=== PATIENT | male | born 1955 | race Caucasian/White ===

== ENCOUNTER → 2016-09-28 | Outpatient (CLI) | payer OTHER ==
[~2016-09-28] VITALS: Ht 175.3 cm; Wt 83.9 kg
[~2016-09-28] MED LIST: AMLODIPINE BESY10 MG PO; ASPIRIN81 M2 PO; B-COMPLEX-VITA1 EACH PO; DESYREL100 MG PO; HYDROCHLOROTH12.5 M3 PO; LISINOPRIL10 MG PO; LOTREL 5/101 CAPSULE PO; OXYCODONE HCL5 MG PO; RANITIDINE HCL150 MG PO; TRAZODONE HCL50 MG PO; VITAMIN D5000 UNI1 PO; VITAMIN E400 UNIT PO
== END | disposition home or self-care (01) ==
LOC: AMB 12:00
DX: K31.5 Obstruction of duodenum (principal); Z53.09 Procedure and treatment not carried out because of other contraindication; K29.80 Duodenitis without bleeding; Z90.49 Acquired absence of other specified parts of digestive tract; I10 Essential (primary) hypertension; B18.2 Chronic viral hepatitis C; F17.200 Nicotine dependence, unspecified, uncomplicated; Z82.49 Family history of ischemic heart disease and other diseases of the circulatory system
CPT/HCPCS: 74328; 88305; 93005; J0330; J1100; J2250; J2405; J3010

== ENCOUNTER 2016-12-05 19:50 | Inpatient (IN) | payer OTHER ==
[~2016-12-05] VITALS: Ht 175.3 cm; Wt 76.6 kg
[2016-12-05 21:05] LABS: HEMATOCRIT 53.2 % (38.0-50.0); MCH 32.2 PG (29.0-34.0); MCHC 35.7 G/DL (30.0-36.0); MCV 90.2 FL (86-99); MEAN PLAT.VOLUME 11.7 uM^3 (9.0-12.4); PLATELET COUNT 354 K/uL (156-360); RBC DIS.WIDTH-CV 12.4 % (11.8-14.6); RBC DIS.WIDTH-SD 41.1 % (39-53); WHITE BLOOD COUNT 14.2 K/uL (4.1-10.2)
[2016-12-05 21:15] LABS: CHLORIDE 68 mEq/L (99-109); SODIUM 133 mEq/L (136-147)
[2016-12-05 21:17] LABS: GLUCOSE 169 mg/dL (70-99)
[2016-12-05 21:18] LABS: ANION GAP 29 MEQ/L (2-14)
[2016-12-05 21:19] LABS: TOTAL BILIRUBIN 2.3 mg/dL (0.0-1.0)
[2016-12-05 21:21] LABS: ALKALINE PHOSPHATASE 88 IU/L (3-129); GFR ESTIMATE (CALCULATED) 18 mL/min/
[2016-12-05 21:22] LABS: UREA NITROGEN (BUN) 45 mg/dL (9-23)
[2016-12-05] MEDS ORDERED: KEFLEX500 MG PO (21:36)
[2016-12-05] MEDS ORDERED: MOBIC7.5 MG PO (21:36)
[2016-12-05 21:39] LABS: POTASSIUM 2.4 mEq/L (3.7-5.4)
[2016-12-05 21:56] LABS: LIPASE 538 U/L (1.0-51.0)
[2016-12-05 22:30] LABS: TROP-I INTERPRETATION NEGATIVE; TROPONIN-I 0.06 ng/mL (0.0-0.30)
[2016-12-06 04:14] LABS: HEMATOCRIT 44.6 % (38.0-50.0); MCH 32.2 PG (29.0-34.0); MCHC 35.2 G/DL (30.0-36.0); MCV 91.6 FL (86-99); RBC DIS.WIDTH-CV 12.3 % (11.8-14.6); RBC DIS.WIDTH-SD 41.3 % (39-53); RED BLOOD COUNT 4.87 M/uL (4.00-5.50); WHITE BLOOD COUNT 12.8 K/uL (4.1-10.2)
[2016-12-06 04:23] LABS: CHLORIDE 74 mEq/L (99-109); SODIUM 134 mEq/L (136-147)
[2016-12-06 04:24] LABS: MAGNESIUM 2.1 mg/dL (1.3-2.7)
[2016-12-06 04:25] LABS: CHLORIDE 74 mEq/L (99-109); GLUCOSE 135 mg/dL (70-99); SODIUM 134 mEq/L (136-147)
[2016-12-06 04:27] LABS: ANION GAP 18 MEQ/L (2-14); GLUCOSE 136 mg/dL (70-99)
[2016-12-06 04:28] LABS: ANION GAP 17 MEQ/L (2-14)
[2016-12-06 04:29] LABS: GFR ESTIMATE (CALCULATED) 20 mL/min/
[2016-12-06 04:30] LABS: CARBON DIOXIDE (BICARBONATE) > 40.0 mEq/L (20-31); POTASSIUM 2.4 mEq/L (3.7-5.4); UREA NITROGEN (BUN) 47 mg/dL (9-23)
[2016-12-06 04:31] LABS: CARBON DIOXIDE (BICARBONATE) > 40.0 mEq/L (20-31); GFR ESTIMATE (CALCULATED) 20 mL/min/; POTASSIUM 2.4 mEq/L (3.7-5.4)
[2016-12-06 04:32] LABS: CREATINE KINASE 54 IU/L (1-294); UREA NITROGEN (BUN) 47 mg/dL (9-23); URIC ACID 15.5 mg/dL (3.1-9.2)
[2016-12-06 05:32] LABS: MEAN PLAT.VOLUME 11.2 uM^3 (9.0-12.4); PLAT.SUFFICIENCY ADEQUATE
[2016-12-06 05:33] LABS: PLATELET COUNT 234 K/uL (156-360)
[2016-12-06] MEDS ORDERED: CYANOCOBALAM1000 MCG PO (09:20)
[2016-12-06] MEDS ORDERED: LISINOPRIL10 MG PO (09:22)
[2016-12-06 09:58] LABS: EOSINOPHIL COUNT 0.2 K/uL (0-0.3); HEMATOCRIT 46.4 % (38.0-50.0); IMMATURE GRANULOCYTE (%) 0.6 % (0.0-0.7); IMMATURE GRANULOCYTE COUNT 0.1 K/uL; INSTRUMENT ABS NEUTROPHIL CT 11.1 K/uL; LYMPHOCYTE COUNT 2.7 K/uL (1.0-2.8); MCH 31.8 PG (29.0-34.0); MCHC 34.3 G/DL (30.0-36.0); MCV 92.8 FL (86-99); MEAN PLAT.VOLUME 11.5 uM^3 (9.0-12.4); MONOCYTE (%) 10.2 % (3-12); MONOCYTE COUNT 1.6 K/uL (0-0.8); NEUTROPHIL (%) 70.6 % (45-76); NEUTROPHIL COUNT 11.1 K/uL (1.8-6.4); PLATELET COUNT 252 K/uL (156-360); RBC DIS.WIDTH-CV 12.6 % (11.8-14.6); RBC DIS.WIDTH-SD 43.2 % (39-53); WHITE BLOOD COUNT 15.7 K/uL (4.1-10.2)
[2016-12-06 10:24] VITALS: BP 135/75
[2016-12-06 10:44] LABS: ALKALINE PHOSPHATASE 70 IU/L (3-129); ANION GAP 15 MEQ/L (2-14); CHLORIDE 77 MEQ/L (99-109); GFR ESTIMATE (CALCULATED) 21 mL/min/; GLUCOSE 116 mg/dL (70-99); POTASSIUM 3.1 MEQ/L (3.7-5.4); SAMPLE HEMOLYSIS CHECK 0; SAMPLE ICTERIC CHECK 0; SAMPLE LIPEMIA CHECK 0; SODIUM 132 MEQ/L (136-147); TOTAL BILIRUBIN 1.6 MG/DL (0.0-1.0); UREA NITROGEN (BUN) 50 mg/dL (9-23)
[2016-12-06 13:21] LABS: VENOUS PCO2 78 mm Hg (41-51)
[2016-12-06 13:22] LABS: CARBON DIOXIDE (BICARBONATE) > 40.0 MEQ/L (20-31)
[2016-12-06 13:30] LABS: ADD MIUA? YES; BILIRUBIN NEGATIVE; BLOOD NEGATIVE; COLOR AMBER ((YELLOW)); GLUCOSE (STRIP) NEGATIVE; KETONES 5; LEUKOCYTES NEGATIVE; NITRITE NEGATIVE; PROTEIN (STRIP) 100; SPECIFIC GRAVITY 1.019 (1.000-1.030)
[2016-12-06 13:45] LABS: BACTERIA RARE /HPF; EPITHELIAL CELLS RARE /HPF; HYALINE CASTS TNTC /LPF; MUCUS 2+ /LPF
[2016-12-06 19:30] VITALS: BP 101/60
[2016-12-06 23:00] VITALS: BP 112/77
[2016-12-07 03:00] VITALS: BP 120/60
[2016-12-07 05:28] LABS: HEMATOCRIT 41.7 % (38.0-50.0); MCH 33.1 PG (29.0-34.0); MCHC 34.8 G/DL (30.0-36.0); MCV 95.2 FL (86-99); PLATELET COUNT 210 K/uL (156-360); RBC DIS.WIDTH-CV 12.6 % (11.8-14.6); RBC DIS.WIDTH-SD 43.8 % (39-53); RED BLOOD COUNT 4.38 M/uL (4.00-5.50); WHITE BLOOD COUNT 11.1 K/uL (4.1-10.2)
[2016-12-07 06:03] LABS: ALKALINE PHOSPHATASE 59 IU/L (3-129); ANION GAP 9 MEQ/L (2-14); LIPASE 588 U/L (1.0-51.0); MAGNESIUM 2.2 mg/dl (1.3-2.7); SAMPLE HEMOLYSIS CHECK 0; SAMPLE ICTERIC CHECK 0; SAMPLE LIPEMIA CHECK 0; SODIUM 136 MEQ/L (136-147); TOTAL BILIRUBIN 1.3 MG/DL (0.0-1.0); UREA NITROGEN (BUN) 38 mg/dL (9-23); URIC ACID 11.3 mg/dL (3.1-9.2)
[2016-12-07 06:07] LABS: CHLORIDE 90 MEQ/L (99-109); GFR ESTIMATE (CALCULATED) 36 mL/min/; GLUCOSE 83 mg/dL (70-99)
[2016-12-07 08:09] VITALS: BP 123/67
[2016-12-07 19:30] VITALS: BP 135/93
[2016-12-07 23:45] VITALS: BP 142/80
== END 2016-12-08 00:25 | disposition short-term general hospital (02) | DRG 682 ==
LOC: EME 19:50 → 4EAST 12-06 03:08 → EDOF 12-06 03:08 → 4EAST 12-06 09:33
PROVIDERS: Hospitalist; Internal Medicine; Internal Medicine Nephrology
DX: N17.9 Acute kidney failure, unspecified (principal); E87.4 Mixed disorder of acid-base balance; K31.1 Adult hypertrophic pyloric stenosis; K31.5 Obstruction of duodenum; K85.90 Acute pancreatitis without necrosis or infection, unspecified; R18.8 Other ascites; E88.89 Other specified metabolic disorders; C78.7 Secondary malignant neoplasm of liver and intrahepatic bile duct; B19.20 Unspecified viral hepatitis C without hepatic coma; E83.119 Hemochromatosis, unspecified; E83.39 Other disorders of phosphorus metabolism; E83.52 Hypercalcemia; E79.0 Hyperuricemia without signs of inflammatory arthritis and tophaceous disease; E86.0 Dehydration; E87.6 Hypokalemia; F12.90 Cannabis use, unspecified, uncomplicated; F17.210 Nicotine dependence, cigarettes, uncomplicated; I10 Essential (primary) hypertension; K29.70 Gastritis, unspecified, without bleeding; K59.00 Constipation, unspecified; K74.60 Unspecified cirrhosis of liver; K80.20 Calculus of gallbladder without cholecystitis without obstruction; N28.1 Cyst of kidney, acquired; N40.0 Benign prostatic hyperplasia without lower urinary tract symptoms; R00.0 Tachycardia, unspecified; Z79.899 Other long term (current) drug therapy; Z82.49 Family history of ischemic heart disease and other diseases of the circulatory system; R63.4 Abnormal weight loss; T73.0XXA Starvation, initial encounter; T46.4X5A Adverse effect of angiotensin-converting-enzyme inhibitors, initial encounter; T39.395A Adverse effect of other nonsteroidal anti-inflammatory drugs [NSAID], initial encounter; D49.9 Neoplasm of unspecified behavior of unspecified site
CPT/HCPCS: 74176; 76770; 80048; 80048 91; 80053; 80069; 81003; 82088 90; 82436; 82550; 82803; 83690; 83735; 83930; 83935; 84100; 84133; 84244 90; 84300; 84484; 84550; 85025; 85027; 93005; 99281; 99285; C9113; J1200; J1644; J2270; J2405; J3480; J7030; J7040; S0028

== ENCOUNTER 2017-06-03 06:22 | Inpatient (IN) | payer OTHER ==
[~2017-06-03] VITALS: Ht 175.3 cm; Wt 73.4 kg
[2017-06-03] VITALS (8 sets, daily range): BP systolic 108–133; BP diastolic 58–79
[~2017-06-03 06:22] MED LIST changes: +CYANOCOBALAM1000 MCG PO; +KEFLEX500 MG PO; +MOBIC7.5 MG PO
[2017-06-03 07:16] LABS: BASOPHIL (%) 0.6 % (0-1); BASOPHIL COUNT 0.1 K/uL (0-0.1); EOSINOPHIL (%) 0.9 % (0-5); EOSINOPHIL COUNT 0.2 K/uL (0-0.3); HEMATOCRIT 30.3 % (38.0-50.0); HEMOGLOBIN 10.3 G/DL (12.5-16.6); LYMPHOCYTE (%) 5.5 % (15-42); LYMPHOCYTE COUNT 1.2 K/uL (1.0-2.8); MCH 31.9 PG (29.0-34.0); MCV 93.8 FL (86-99); MONOCYTE (%) 7.5 % (3-12); MONOCYTE COUNT 1.6 K/uL (0-0.8); NEUTROPHIL (%) 84.5 % (45-76); NEUTROPHIL COUNT 17.7 K/uL (1.8-6.4); PLATELET COUNT 339 K/uL (156-360); RBC DIS.WIDTH-CV 15.2 % (11.8-14.6); RBC DIS.WIDTH-SD 52.5 % (39-53); RED BLOOD COUNT 3.23 M/uL (4.00-5.50)
[2017-06-03 07:24] LABS: CHLORIDE 103 mEq/L (99-109); POTASSIUM 3.3 mEq/L (3.7-5.4); SODIUM 139 mEq/L (136-147)
[2017-06-03 07:27] LABS: GLUCOSE 120 mg/dL (70-99); TOTAL PROTEIN 6.3 g/dL (6.4-8.3)
[2017-06-03 07:29] LABS: TOTAL BILIRUBIN 0.8 mg/dL (0.0-1.0)
[2017-06-03 07:30] LABS: ALKALINE PHOSPHATASE 143 IU/L (3-129); CREATININE 0.7 mg/dL (0.6-1.3); GFR ESTIMATE (CALCULATED) > 59 mL/min/ (58.99-99999)
[2017-06-03 07:31] LABS: UREA NITROGEN (BUN) 19 mg/dL (9-23)
[2017-06-03 07:32] LABS: AST (GOT) 40 IU/L (2-34)
[2017-06-03 07:33] LABS: ALT (GPT) 90 IU/L (3-49)
[2017-06-03 07:34] LABS: LIPASE 86 U/L (1.0-51.0)
[2017-06-03 08:33] LABS: INTER. NORMALIZED RATIO 1.2
[2017-06-03 08:36] LABS: PTT 30.3 SEC (25-37)
[2017-06-03 10:41] LABS: APPEARANCE CLOUDY ((CLEAR)); BILIRUBIN NEGATIVE; BLOOD NEGATIVE; COLOR AMBER ((YELLOW)); GLUCOSE (STRIP) NEGATIVE; KETONES 5; LEUKOCYTES MODERATE; NITRITE POSITIVE; PROTEIN (STRIP) 30; SPECIFIC GRAVITY 1.024 (1.000-1.030)
[2017-06-03 10:52] LABS: BACTERIA 3+ /HPF; CALCIUM OXALATE CRYSTALS 2+ /HPF; EPITHELIAL CELLS RARE /HPF; HYALINE CASTS 0-5 /LPF; MUCUS 1+ /LPF; RED BLOOD CELLS 0-5 /HPF (0-5); UCUL ADDED? YES; WHITE BLOOD CELLS TNTC /HPF (0-5)
[2017-06-03] MEDS ORDERED: BENAZEPRIL HCL10 MG PO (11:42)
[2017-06-03] MEDS ORDERED: MORPHINE SULFAT30 M2 PO (11:42)
[2017-06-03] MEDS ORDERED: RANITIDINE HCL150 MG PO (11:43)
[2017-06-03] MEDS ORDERED: MORPHINE SULFAT15 MG PO (11:43)
[2017-06-03] MEDS ORDERED: COMPAZINE5 MG PO (11:44)
[2017-06-03 13:06] LABS: HEMATOCRIT 22.9 % (38.0-50.0); HEMOGLOBIN 7.8 G/DL (12.5-16.6)
[2017-06-03 20:00] LABS: HEMATOCRIT 20.9 % (38.0-50.0); HEMOGLOBIN 6.9 G/DL (12.5-16.6); MCV 94.1 FL (86-99)
[2017-06-04] VITALS (7 sets, daily range): BP systolic 112–138; BP diastolic 65–76
[2017-06-04 06:33] LABS: INTER. NORMALIZED RATIO 1.2
[2017-06-04 06:36] LABS: PTT 30.4 SEC (25-37)
[2017-06-04 06:44] LABS: ALBUMIN 2.2 G/DL (3.2-4.8); ALKALINE PHOSPHATASE 96 IU/L (3-129); ALT (GPT) 52 IU/L (3-49); AST (GOT) 25 IU/L (2-34); CHLORIDE 106 MEQ/L (99-109); CREATININE 0.6 MG/DL (0.6-1.3); GFR ESTIMATE (CALCULATED) > 59 mL/min/ (58.99-99999); POTASSIUM 3.3 MEQ/L (3.7-5.4); SODIUM 136 MEQ/L (136-147); TOTAL BILIRUBIN 0.8 MG/DL (0.0-1.0); TOTAL PROTEIN 4.7 G/DL (6.4-8.3); UREA NITROGEN (BUN) 18 mg/dL (9-23)
[2017-06-04 06:45] LABS: GLUCOSE 86 mg/dL (70-99)
[2017-06-04 08:06] LABS: BASOPHIL (%) 0.3 % (0-1); EOSINOPHIL (%) 0.5 % (0-5); EOSINOPHIL COUNT 0.1 K/uL (0-0.3); HEMATOCRIT 23.7 % (38.0-50.0); HEMOGLOBIN 8.1 G/DL (12.5-16.6); IMMATURE GRANULOCYTE (%) 0.5 % (0.0-0.7); LYMPHOCYTE (%) 7.5 % (15-42); LYMPHOCYTE COUNT 0.9 K/uL (1.0-2.8); MCH 31.6 PG (29.0-34.0); MCHC 34.2 G/DL (30.0-36.0); MCV 92.6 FL (86-99); MONOCYTE (%) 10.6 % (3-12); MONOCYTE COUNT 1.3 K/uL (0-0.8); NEUTROPHIL (%) 80.6 % (45-76); NEUTROPHIL COUNT 9.7 K/uL (1.8-6.4); RBC DIS.WIDTH-CV 16.2 % (11.8-14.6); RBC DIS.WIDTH-SD 55.2 % (39-53); WHITE BLOOD COUNT 12.1 K/uL (4.1-10.2)
[2017-06-04 08:25] LABS: PLAT.SUFFICIENCY ADEQUATE; PLATELET CLUMPS PRESENT - PLATELET COUNT APPEARS ADQ.; PLATELET COUNT UNABLE TO REPORT K/uL (156-360); RED BLOOD COUNT 2.56 M/uL (4.00-5.50)
[2017-06-05 06:24] LABS: BASOPHIL (%) 0.2 % (0-1); EOSINOPHIL (%) 1.5 % (0-5); EOSINOPHIL COUNT 0.1 K/uL (0-0.3); HEMATOCRIT 23.3 % (38.0-50.0); HEMOGLOBIN 7.7 G/DL (12.5-16.6); LYMPHOCYTE (%) 10.1 % (15-42); LYMPHOCYTE COUNT 0.9 K/uL (1.0-2.8); MCH 30.9 PG (29.0-34.0); MCV 93.6 FL (86-99); MONOCYTE (%) 13.4 % (3-12); MONOCYTE COUNT 1.2 K/uL (0-0.8); NEUTROPHIL (%) 73.8 % (45-76); NEUTROPHIL COUNT 6.5 K/uL (1.8-6.4); PLATELET COUNT 153 K/uL (156-360); RBC DIS.WIDTH-CV 15.9 % (11.8-14.6); RBC DIS.WIDTH-SD 54.8 % (39-53); RED BLOOD COUNT 2.49 M/uL (4.00-5.50); WHITE BLOOD COUNT 8.8 K/uL (4.1-10.2)
[2017-06-05 06:51] LABS: CHLORIDE 106 MEQ/L (99-109); CREATININE 0.7 MG/DL (0.6-1.3); GFR ESTIMATE (CALCULATED) > 59 mL/min/ (58.99-99999); GLUCOSE 105 mg/dL (70-99); POTASSIUM 3.4 MEQ/L (3.7-5.4); SODIUM 135 MEQ/L (136-147); UREA NITROGEN (BUN) 12 mg/dL (9-23)
[2017-06-05 08:33] VITALS: BP 112/73
[2017-06-05 11:00] VITALS: BP 117/68
[2017-06-05 14:12] LABS: HEMATOCRIT 24.7 % (38.0-50.0); HEMOGLOBIN 8.3 G/DL (12.5-16.6); MCH 31.8 PG (29.0-34.0); MCHC 33.6 G/DL (30.0-36.0); MCV 94.6 FL (86-99); PLATELET COUNT 191 K/uL (156-360); RBC DIS.WIDTH-CV 15.9 % (11.8-14.6); RBC DIS.WIDTH-SD 55.4 % (39-53); RED BLOOD COUNT 2.61 M/uL (4.00-5.50); WHITE BLOOD COUNT 10.4 K/uL (4.1-10.2)
[2017-06-05 14:35] LABS: ATYPICAL LYMPHOCYTE 0.9 %; BASOPHILS 1.8 %; EOSINOPHIL ABS CT 0.3; EOSINOPHILS 2.6 % (0-5.0); LYMPHOCYTES 4.4 % (15.0-45.0); MONOCYTES 3.5 % (0-9.0); SEG.NEUTROPHILS 86.8 % (46.0-76.0); SMUDGE CELLS 1.8
[2017-06-05 15:00] VITALS: BP 115/71
[2017-06-05 23:18] VITALS: BP 127/81
[2017-06-06 06:19] LABS: BASOPHIL (%) 0.8 % (0-1); BASOPHIL COUNT 0.1 K/uL (0-0.1); EOSINOPHIL (%) 3.9 % (0-5); EOSINOPHIL COUNT 0.3 K/uL (0-0.3); HEMATOCRIT 21.8 % (38.0-50.0); HEMOGLOBIN 7.4 G/DL (12.5-16.6); LYMPHOCYTE (%) 13.6 % (15-42); MCHC 33.9 G/DL (30.0-36.0); MCV 94.4 FL (86-99); MONOCYTE (%) 12.9 % (3-12); MONOCYTE COUNT 0.9 K/uL (0-0.8); NEUTROPHIL (%) 67.8 % (45-76); NEUTROPHIL COUNT 4.9 K/uL (1.8-6.4); PLATELET COUNT 164 K/uL (156-360); RBC DIS.WIDTH-CV 15.9 % (11.8-14.6); RBC DIS.WIDTH-SD 54.6 % (39-53); RED BLOOD COUNT 2.31 M/uL (4.00-5.50); WHITE BLOOD COUNT 7.2 K/uL (4.1-10.2)
[2017-06-06 06:54] LABS: CHLORIDE 108 MEQ/L (99-109); CREATININE 0.6 MG/DL (0.6-1.3); GFR ESTIMATE (CALCULATED) > 59 mL/min/ (58.99-99999); GLUCOSE 96 mg/dL (70-99); POTASSIUM 3.6 MEQ/L (3.7-5.4); SODIUM 136 MEQ/L (136-147); UREA NITROGEN (BUN) 9 mg/dL (9-23)
[2017-06-06 08:26] VITALS: BP 128/74
[2017-06-06 14:40] LABS: BASOPHIL (%) 0.6 % (0-1); BASOPHIL COUNT 0.1 K/uL (0-0.1); EOSINOPHIL (%) 2.4 % (0-5); EOSINOPHIL COUNT 0.2 K/uL (0-0.3); HEMATOCRIT 23.8 % (38.0-50.0); HEMOGLOBIN 7.9 G/DL (12.5-16.6); IMMATURE GRANULOCYTE (%) 0.8 % (0.0-0.7); LYMPHOCYTE COUNT 0.8 K/uL (1.0-2.8); MCH 31.5 PG (29.0-34.0); MCHC 33.2 G/DL (30.0-36.0); MCV 94.8 FL (86-99); MONOCYTE (%) 9.3 % (3-12); MONOCYTE COUNT 0.8 K/uL (0-0.8); NEUTROPHIL (%) 77.9 % (45-76); NEUTROPHIL COUNT 6.8 K/uL (1.8-6.4); PLATELET COUNT 192 K/uL (156-360); RBC DIS.WIDTH-CV 15.8 % (11.8-14.6); RBC DIS.WIDTH-SD 54.3 % (39-53); RED BLOOD COUNT 2.51 M/uL (4.00-5.50); WHITE BLOOD COUNT 8.7 K/uL (4.1-10.2)
[2017-06-06 17:08] VITALS: BP 122/58
[2017-06-06 23:58] VITALS: BP 134/67
[2017-06-07] VITALS (28 sets, daily range): BP systolic 86–147; BP diastolic 53–97
[2017-06-07 03:11] LABS: HEMATOCRIT 22.2 % (38.0-50.0); HEMOGLOBIN 7.5 G/DL (12.5-16.6); MCH 31.6 PG (29.0-34.0); MCHC 33.8 G/DL (30.0-36.0); MCV 93.7 FL (86-99); RBC DIS.WIDTH-CV 15.9 % (11.8-14.6); RBC DIS.WIDTH-SD 54.3 % (39-53); RED BLOOD COUNT 2.37 M/uL (4.00-5.50); WHITE BLOOD COUNT 15.9 K/uL (4.1-10.2)
[2017-06-07 03:13] LABS: PLATELET COUNT 330 K/uL (156-360)
[2017-06-07 03:16] LABS: ALBUMIN 2.3 g/dL (3.2-4.8); CHLORIDE 106 mEq/L (99-109); POTASSIUM 3.4 mEq/L (3.7-5.4); SODIUM 133 mEq/L (136-147)
[2017-06-07 03:18] LABS: GLUCOSE 126 mg/dL (70-99)
[2017-06-07 03:22] LABS: CREATININE 0.7 mg/dL (0.6-1.3); GFR ESTIMATE (CALCULATED) > 59 mL/min/ (58.99-99999)
[2017-06-07 03:23] LABS: AST (GOT) 30 IU/L (2-34); UREA NITROGEN (BUN) 7 mg/dL (9-23)
[2017-06-07 03:24] LABS: DIRECT BILIRUBIN 0.3 mg/dL (0.0-0.3)
[2017-06-07 03:25] LABS: ALT (GPT) 63 IU/L (3-49)
[2017-06-07 03:28] LABS: ALKALINE PHOSPHATASE 106 IU/L (3-129); TOTAL BILIRUBIN 0.4 mg/dL (0.0-1.0); TOTAL PROTEIN 4.9 g/dL (6.4-8.3)
[2017-06-07 05:34] LABS: INTER. NORMALIZED RATIO 1.1
[2017-06-07 07:46] LABS: HEMATOCRIT 21.9 % (38.0-50.0); HEMOGLOBIN 7.1 G/DL (12.5-16.6); MCV 94.4 FL (86-99)
[2017-06-07 08:47] LABS: HEMATOCRIT 19.5 % (38.0-50.0); MCV 92.4 FL (86-99)
[2017-06-07 08:48] LABS: HEMOGLOBIN 6.4 G/DL (12.5-16.6)
[2017-06-07 09:52] LABS: IMM.RETIC FRACTION 22.4 % (3-19); RETIC HGB EQUIVALENT 34.3 (28-36); RETICULOCYTE COUNT 2.6 % (0.5-1.8)
[2017-06-07 09:54] LABS: LACTATE DEHYDROGENASE 366 IU/L (20-246)
[2017-06-07 10:07] LABS: IRON 34 MCG/DL (35-150); TRANSFERRIN (TIBC) 135.8 mg/dL (215-380); TRANSFERRIN SATUR. 25 % (20-55)
[2017-06-07 14:24] LABS: HEMOGLOBIN 7.8 G/DL (12.5-16.6); MCV 89.5 FL (86-99)
[2017-06-07 20:42] LABS: HEMATOCRIT 22.6 % (38.0-50.0); HEMOGLOBIN 7.5 G/DL (12.5-16.6); MCV 89.7 FL (86-99)
[2017-06-08] VITALS (14 sets, daily range): BP systolic 90–142; BP diastolic 65–84
[2017-06-08 04:07] LABS: ALBUMIN 2.1 g/dL (3.2-4.8); CHLORIDE 111 mEq/L (99-109); SODIUM 136 mEq/L (136-147)
[2017-06-08 04:09] LABS: GLUCOSE 112 mg/dL (70-99)
[2017-06-08 04:11] LABS: TOTAL BILIRUBIN 0.4 mg/dL (0.0-1.0)
[2017-06-08 04:13] LABS: ALKALINE PHOSPHATASE 77 IU/L (3-129); CREATININE 0.7 mg/dL (0.6-1.3); GFR ESTIMATE (CALCULATED) > 59 mL/min/ (58.99-99999)
[2017-06-08 04:14] LABS: UREA NITROGEN (BUN) 11 mg/dL (9-23)
[2017-06-08 04:15] LABS: AST (GOT) 25 IU/L (2-34)
[2017-06-08 04:16] LABS: ALT (GPT) 56 IU/L (3-49)
[2017-06-08 04:18] LABS: POTASSIUM 4.6 mEq/L (3.7-5.4)
[2017-06-08 04:36] LABS: BASOPHIL COUNT 0.1 K/uL (0-0.1); EOSINOPHIL (%) 3.3 % (0-5); EOSINOPHIL COUNT 0.3 K/uL (0-0.3); HEMOGLOBIN 7.5 G/DL (12.5-16.6); LYMPHOCYTE (%) 15.3 % (15-42); LYMPHOCYTE COUNT 1.3 K/uL (1.0-2.8); MCH 30.4 PG (29.0-34.0); MCHC 34.1 G/DL (30.0-36.0); MCV 89.1 FL (86-99); MONOCYTE (%) 8.8 % (3-12); MONOCYTE COUNT 0.7 K/uL (0-0.8); NEUTROPHIL (%) 70.6 % (45-76); NEUTROPHIL COUNT 5.9 K/uL (1.8-6.4); RBC DIS.WIDTH-CV 17.2 % (11.8-14.6); RBC DIS.WIDTH-SD 55.7 % (39-53); RED BLOOD COUNT 2.47 M/uL (4.00-5.50); WHITE BLOOD COUNT 8.4 K/uL (4.1-10.2)
[2017-06-08 04:41] LABS: PLAT.SUFFICIENCY ADEQUATE; PLATELET COUNT 196 K/uL (156-360)
[2017-06-08 10:46] LABS: HEMATOCRIT 21.9 % (38.0-50.0); HEMOGLOBIN 7.3 G/DL (12.5-16.6); MCV 91.3 FL (86-99)
[2017-06-08 18:03] LABS: BASOPHIL (%) 1.1 % (0-1); BASOPHIL COUNT 0.1 K/uL (0-0.1); EOSINOPHIL (%) 3.9 % (0-5); EOSINOPHIL COUNT 0.4 K/uL (0-0.3); HEMATOCRIT 24.4 % (38.0-50.0); HEMOGLOBIN 8.2 G/DL (12.5-16.6); IMMATURE GRANULOCYTE (%) 1.4 % (0.0-0.7); LYMPHOCYTE (%) 12.7 % (15-42); LYMPHOCYTE COUNT 1.2 K/uL (1.0-2.8); MCH 30.6 PG (29.0-34.0); MCHC 33.6 G/DL (30.0-36.0); MONOCYTE (%) 8.7 % (3-12); MONOCYTE COUNT 0.8 K/uL (0-0.8); NEUTROPHIL (%) 72.2 % (45-76); NEUTROPHIL COUNT 6.7 K/uL (1.8-6.4); RBC DIS.WIDTH-CV 17.3 % (11.8-14.6); RBC DIS.WIDTH-SD 57.2 % (39-53); RED BLOOD COUNT 2.68 M/uL (4.00-5.50); WHITE BLOOD COUNT 9.3 K/uL (4.1-10.2)
[2017-06-08 18:23] LABS: PLATELET COUNT 258 K/uL (156-360)
[2017-06-09] VITALS (11 sets, daily range): BP systolic 104–160; BP diastolic 59–82
[2017-06-09 06:19] LABS: BASOPHIL (%) 0.8 % (0-1); BASOPHIL COUNT 0.1 K/uL (0-0.1); EOSINOPHIL (%) 2.7 % (0-5); EOSINOPHIL COUNT 0.2 K/uL (0-0.3); HEMOGLOBIN 7.3 G/DL (12.5-16.6); IMMATURE GRANULOCYTE (%) 0.7 % (0.0-0.7); LYMPHOCYTE (%) 14.4 % (15-42); LYMPHOCYTE COUNT 1.2 K/uL (1.0-2.8); MCH 30.2 PG (29.0-34.0); MCHC 33.2 G/DL (30.0-36.0); MCV 90.9 FL (86-99); MONOCYTE (%) 8.9 % (3-12); MONOCYTE COUNT 0.8 K/uL (0-0.8); NEUTROPHIL (%) 72.5 % (45-76); NEUTROPHIL COUNT 6.2 K/uL (1.8-6.4); PLATELET COUNT 206 K/uL (156-360); RBC DIS.WIDTH-CV 17.1 % (11.8-14.6); RBC DIS.WIDTH-SD 56.4 % (39-53); RED BLOOD COUNT 2.42 M/uL (4.00-5.50); WHITE BLOOD COUNT 8.6 K/uL (4.1-10.2)
[2017-06-09 06:47] LABS: CHLORIDE 109 MEQ/L (99-109); CREATININE 0.7 MG/DL (0.6-1.3); GFR ESTIMATE (CALCULATED) > 59 mL/min/ (58.99-99999); GLUCOSE 113 mg/dL (70-99); POTASSIUM 3.7 MEQ/L (3.7-5.4); SODIUM 135 MEQ/L (136-147); UREA NITROGEN (BUN) 14 mg/dL (9-23)
[2017-06-09 21:00] LABS: BASOPHIL (%) 0.5 % (0-1); BASOPHIL COUNT 0.1 K/uL (0-0.1); EOSINOPHIL (%) 2.8 % (0-5); EOSINOPHIL COUNT 0.3 K/uL (0-0.3); HEMATOCRIT 24.4 % (38.0-50.0); HEMOGLOBIN 8.4 G/DL (12.5-16.6); IMMATURE GRANULOCYTE (%) 0.6 % (0.0-0.7); LYMPHOCYTE (%) 10.9 % (15-42); MCH 31.3 PG (29.0-34.0); MCHC 34.4 G/DL (30.0-36.0); MONOCYTE (%) 8.6 % (3-12); MONOCYTE COUNT 0.8 K/uL (0-0.8); NEUTROPHIL (%) 76.6 % (45-76); NEUTROPHIL COUNT 7.2 K/uL (1.8-6.4); PLATELET COUNT 201 K/uL (156-360); RBC DIS.WIDTH-CV 16.1 % (11.8-14.6); RBC DIS.WIDTH-SD 52.6 % (39-53); RED BLOOD COUNT 2.68 M/uL (4.00-5.50); WHITE BLOOD COUNT 9.4 K/uL (4.1-10.2)
[2017-06-10] VITALS (7 sets, daily range): BP systolic 129–157; BP diastolic 72–82
[2017-06-10 06:11] LABS: HEMATOCRIT 25.6 % (38.0-50.0); HEMOGLOBIN 8.5 G/DL (12.5-16.6); MCHC 33.2 G/DL (30.0-36.0); MCV 90.5 FL (86-99); PLATELET COUNT 207 K/uL (156-360); RBC DIS.WIDTH-CV 16.1 % (11.8-14.6); RBC DIS.WIDTH-SD 52.2 % (39-53); RED BLOOD COUNT 2.83 M/uL (4.00-5.50); WHITE BLOOD COUNT 8.9 K/uL (4.1-10.2)
[2017-06-10 07:02] LABS: CHLORIDE 107 MEQ/L (99-109); CREATININE 0.7 MG/DL (0.6-1.3); GFR ESTIMATE (CALCULATED) > 59 mL/min/ (58.99-99999); GLUCOSE 101 mg/dL (70-99); POTASSIUM 3.6 MEQ/L (3.7-5.4); SODIUM 137 MEQ/L (136-147); UREA NITROGEN (BUN) 12 mg/dL (9-23)
[2017-06-11 07:27] VITALS: BP 134/73
[2017-06-11 09:12] LABS: HEMATOCRIT 25.4 % (38.0-50.0); HEMOGLOBIN 8.4 G/DL (12.5-16.6); MCH 30.3 PG (29.0-34.0); MCHC 33.1 G/DL (30.0-36.0); MCV 91.7 FL (86-99); PLATELET COUNT 202 K/uL (156-360); RBC DIS.WIDTH-CV 16.6 % (11.8-14.6); RBC DIS.WIDTH-SD 54.8 % (39-53); RED BLOOD COUNT 2.77 M/uL (4.00-5.50); WHITE BLOOD COUNT 8.1 K/uL (4.1-10.2)
[2017-06-11 09:30] LABS: CHLORIDE 108 MEQ/L (99-109); POTASSIUM 3.6 MEQ/L (3.7-5.4); SODIUM 138 MEQ/L (136-147)
[2017-06-11 09:36] LABS: CREATININE 0.7 MG/DL (0.6-1.3); GFR ESTIMATE (CALCULATED) > 59 mL/min/ (58.99-99999); GLUCOSE 103 mg/dL (70-99); UREA NITROGEN (BUN) 12 mg/dL (9-23)
[2017-06-11 11:09] VITALS: BP 130/88
[2017-06-11 15:40] VITALS: BP 133/84
[2017-06-11 19:11] VITALS: BP 107/64
[2017-06-11 22:45] VITALS: BP 132/73
[2017-06-12 06:55] VITALS: BP 130/63
[2017-06-12 08:02] LABS: HEMATOCRIT 25.6 % (38.0-50.0); HEMOGLOBIN 8.4 G/DL (12.5-16.6); MCH 30.5 PG (29.0-34.0); MCHC 32.8 G/DL (30.0-36.0); MCV 93.1 FL (86-99); PLATELET COUNT 215 K/uL (156-360); RBC DIS.WIDTH-SD 57.1 % (39-53); RED BLOOD COUNT 2.75 M/uL (4.00-5.50); WHITE BLOOD COUNT 8.5 K/uL (4.1-10.2)
[2017-06-12 08:59] LABS: CHLORIDE 107 MEQ/L (99-109); POTASSIUM 3.5 MEQ/L (3.7-5.4); SODIUM 137 MEQ/L (136-147)
[2017-06-12 09:04] LABS: CREATININE 0.7 MG/DL (0.6-1.3); GFR ESTIMATE (CALCULATED) > 59 mL/min/ (58.99-99999); GLUCOSE 87 mg/dL (70-99); UREA NITROGEN (BUN) 12 mg/dL (9-23)
[2017-06-12 11:46] VITALS: BP 142/77
[2017-06-12 16:17] VITALS: BP 140/83
[2017-06-12] MEDS ORDERED: PROTONIX IV40 MG IV (16:30)
[2017-06-13 07:02] LABS: BASOPHIL COUNT 0.1 K/uL (0-0.1); EOSINOPHIL (%) 3.5 % (0-5); EOSINOPHIL COUNT 0.3 K/uL (0-0.3); HEMATOCRIT 25.3 % (38.0-50.0); HEMOGLOBIN 8.3 G/DL (12.5-16.6); IMMATURE GRANULOCYTE (%) 0.4 % (0.0-0.7); LYMPHOCYTE (%) 11.6 % (15-42); LYMPHOCYTE COUNT 0.9 K/uL (1.0-2.8); MCH 30.6 PG (29.0-34.0); MCHC 32.8 G/DL (30.0-36.0); MCV 93.4 FL (86-99); MONOCYTE (%) 11.6 % (3-12); MONOCYTE COUNT 0.9 K/uL (0-0.8); NEUTROPHIL (%) 71.9 % (45-76); NEUTROPHIL COUNT 5.8 K/uL (1.8-6.4); PLATELET COUNT 224 K/uL (156-360); RED BLOOD COUNT 2.71 M/uL (4.00-5.50); WHITE BLOOD COUNT 8.1 K/uL (4.1-10.2)
[2017-06-13 07:06] VITALS: BP 119/63
[2017-06-13 08:42] VITALS: BP 119/63
== END 2017-06-13 14:38 | disposition short-term general hospital (02) | DRG 377 ==
LOC: EME → EDBD 06:22 → EME 06:22 → EDOF 09:19 → 5EAST 09:19 → 4WEST 09:19 → ENRESERV 09:22 → EDOF 09:41 → ENRESERV 10:38 → 5EAST 11:56 → ENRESERV 06-07 03:05 → 5EAST 06-07 03:06 → 4WEST 06-07 03:11 → ENRESERV 06-08 16:47 → 5EAST 06-08 19:49 → ENPENDDIS 06-13 → EDPENDDISTM 06-13 14:30 → 5EAST 06-13 14:38
PROVIDERS: Hospitalist; Internal Medicine; Internal Medicine Gastroenterology; Internal Medicine Medical Oncology; Physician Assistant; Student in an Organized Health Care Education/Training Program; Surgery
PROC: 0DJ08ZZ Inspection of Upper Intestinal Tract, Via Natural or Artificial Opening Endoscopic (ICD-10-PCS; principal; 2017-06-04)
PROC: 0DJ08ZZ Inspection of Upper Intestinal Tract, Via Natural or Artificial Opening Endoscopic (ICD-10-PCS; 2017-06-07)
DX: K92.2 Gastrointestinal hemorrhage, unspecified (principal); R65.11 Systemic inflammatory response syndrome (SIRS) of non-infectious origin with acute organ dysfunction; R57.1 Hypovolemic shock; R64 Cachexia; C25.0 Malignant neoplasm of head of pancreas; C22.0 Liver cell carcinoma; D62 Acute posthemorrhagic anemia; E87.2 Acidosis; N39.0 Urinary tract infection, site not specified; G89.3 Neoplasm related pain (acute) (chronic); F17.210 Nicotine dependence, cigarettes, uncomplicated; B18.2 Chronic viral hepatitis C; E83.119 Hemochromatosis, unspecified; E87.6 Hypokalemia; E87.70 Fluid overload, unspecified; F12.90 Cannabis use, unspecified, uncomplicated; I10 Essential (primary) hypertension; K74.60 Unspecified cirrhosis of liver; Z16.24 Resistance to multiple antibiotics; Z16.11 Resistance to penicillins; K92.0 Hematemesis; K29.80 Duodenitis without bleeding; K26.9 Duodenal ulcer, unspecified as acute or chronic, without hemorrhage or perforation; B96.20 Unspecified Escherichia coli [E. coli] as the cause of diseases classified elsewhere; Z87.440 Personal history of urinary (tract) infections; Z79.82 Long term (current) use of aspirin; Z75.1 Person awaiting admission to adequate facility elsewhere; Z82.49 Family history of ischemic heart disease and other diseases of the circulatory system
CPT/HCPCS: 71045; 71046; 74176; 80048; 80053; 81003; 82140; 82248; 82948; 83010 90; 83540; 83605; 83615; 83690; 84132; 84466; 85014; 85018; 85025; 85025 91; 85027; 85046; 85610; 85730; 86850; 86900; 86901; 86920; 87040; 87077; 87086; 87186; 87641; 87801; 90686; 99281; 99285; C1751; C9113; J0696; J1940; J2270; J2354; J2405; J3010; J3480; J7030; J7050; P9016

== ENCOUNTER 2017-06-27 20:30 | Inpatient (IN) | payer OTHER ==
[~2017-06-27] VITALS: Ht 170.2 cm; Wt 68.9 kg
[~2017-06-27 20:30] MED LIST changes: +BENAZEPRIL HCL10 MG PO; +COMPAZINE5 MG PO; +MORPHINE SULFAT15 MG PO; +MORPHINE SULFAT30 M2 PO; +PROTONIX IV40 MG IV
[2017-06-27] MEDS ORDERED: ZANTAC150 MG PO (21:31)
[2017-06-27] MEDS ORDERED: PEPTO BISMOL240 ML PO (21:31)
[2017-06-27] MEDS ORDERED: AMLODIPINE BESYL5 MG PO (21:31)
[2017-06-27] MEDS ORDERED: PHILLIPS'400 MG/5 M PO (21:31)
[2017-06-27 21:39] LABS: HEMATOCRIT 20.4 % (38.0-50.0); MCH 30.5 PG (29.0-34.0); MCHC 31.9 G/DL (30.0-36.0); MCV 95.8 FL (86-99); RBC DIS.WIDTH-CV 17.4 % (11.8-14.6); RBC DIS.WIDTH-SD 60.5 % (39-53); WHITE BLOOD COUNT 12.5 K/uL (4.1-10.2)
[2017-06-27 21:40] LABS: RED BLOOD COUNT 2.13 M/uL (4.00-5.50)
[2017-06-27 21:41] LABS: HEMOGLOBIN 6.5 G/DL (12.5-16.6); PLATELET COUNT 397 K/uL (156-360)
[2017-06-27 21:42] LABS: INTER. NORMALIZED RATIO 1.1
[2017-06-27 21:44] LABS: PTT 26.1 SEC (25-37)
[2017-06-27 21:48] LABS: ALBUMIN 2.2 g/dL (3.2-4.8); CHLORIDE 98 mEq/L (99-109); POTASSIUM 2.8 mEq/L (3.7-5.4); SODIUM 130 mEq/L (136-147)
[2017-06-27 21:50] LABS: GLUCOSE 107 mg/dL (70-99); TOTAL PROTEIN 4.7 g/dL (6.4-8.3)
[2017-06-27 21:52] LABS: TOTAL BILIRUBIN 0.5 mg/dL (0.0-1.0)
[2017-06-27 21:54] LABS: ALKALINE PHOSPHATASE 100 IU/L (3-129); CREATININE 0.6 mg/dL (0.6-1.3); GFR ESTIMATE (CALCULATED) > 59 mL/min/ (58.99-99999)
[2017-06-27 21:55] LABS: AST (GOT) 38 IU/L (2-34); UREA NITROGEN (BUN) 7 mg/dL (9-23)
[2017-06-27 21:56] LABS: DIRECT BILIRUBIN 0.3 mg/dL (0.0-0.3)
[2017-06-27 21:57] LABS: ALT (GPT) 112 IU/L (3-49)
[2017-06-27 22:02] LABS: TROP-I INTERPRETATION NEGATIVE; TROPONIN-I < 0.01 ng/mL (0.0-0.30)
[2017-06-27 22:56] LABS: TRANSFERRIN (TIBC) 174.3 mg/dL (215-380)
[2017-06-27 23:20] LABS: FERRITIN 28 NG/ML (22-322)
[2017-06-28] VITALS (12 sets, daily range): BP systolic 100–140; BP diastolic 57–76
[2017-06-28 05:53] LABS: HEMATOCRIT 23.2 % (38.0-50.0); HEMOGLOBIN 7.3 G/DL (12.5-16.6); MCH 30.4 PG (29.0-34.0); MCHC 31.5 G/DL (30.0-36.0); MCV 96.7 FL (86-99); PLATELET COUNT 340 K/uL (156-360); RBC DIS.WIDTH-CV 16.6 % (11.8-14.6); RBC DIS.WIDTH-SD 59.4 % (39-53)
[2017-06-28 08:57] LABS: APPEARANCE CLEAR ((CLEAR)); BILIRUBIN NEGATIVE; BLOOD NEGATIVE; COLOR YELLOW ((YELLOW)); GLUCOSE (STRIP) NEGATIVE; KETONES NEGATIVE; LEUKOCYTES NEGATIVE; NITRITE NEGATIVE; PROTEIN (STRIP) NEGATIVE; SPECIFIC GRAVITY 1.008 (1.000-1.030); UROBILINOGEN 0.2 MG/DL (0.2-1.0)
[2017-06-28 09:20] LABS: ALBUMIN 1.9 G/DL (3.2-4.8); ALKALINE PHOSPHATASE 82 IU/L (3-129); ALT (GPT) 84 IU/L (3-49); AST (GOT) 33 IU/L (2-34); CHLORIDE 102 MEQ/L (99-109); CREATININE 0.6 MG/DL (0.6-1.3); GFR ESTIMATE (CALCULATED) > 59 mL/min/ (58.99-99999); GLUCOSE 88 mg/dL (70-99); MAGNESIUM 2.2 mg/dl (1.3-2.7); SODIUM 133 MEQ/L (136-147); TOTAL BILIRUBIN 0.6 MG/DL (0.0-1.0); TOTAL PROTEIN 4.3 G/DL (6.4-8.3); UREA NITROGEN (BUN) 7 mg/dL (9-23)
[2017-06-28 09:22] LABS: POTASSIUM 3.7 MEQ/L (3.7-5.4)
[2017-06-29 03:59] VITALS: BP 123/75
[2017-06-29 05:36] LABS: BASOPHIL (%) 0.2 % (0-1); EOSINOPHIL (%) 0.4 % (0-5); EOSINOPHIL COUNT 0.1 K/uL (0-0.3); HEMATOCRIT 29.2 % (38.0-50.0); IMMATURE GRANULOCYTE (%) 0.6 % (0.0-0.7); LYMPHOCYTE (%) 5.9 % (15-42); LYMPHOCYTE COUNT 0.8 K/uL (1.0-2.8); MCH 29.3 PG (29.0-34.0); MCHC 30.8 G/DL (30.0-36.0); MCV 95.1 FL (86-99); MONOCYTE (%) 11.3 % (3-12); MONOCYTE COUNT 1.5 K/uL (0-0.8); NEUTROPHIL (%) 81.6 % (45-76); NEUTROPHIL COUNT 10.8 K/uL (1.8-6.4); PLATELET COUNT 403 K/uL (156-360); RBC DIS.WIDTH-CV 17.2 % (11.8-14.6); RBC DIS.WIDTH-SD 59.4 % (39-53); WHITE BLOOD COUNT 13.2 K/uL (4.1-10.2)
[2017-06-29 05:44] LABS: RED BLOOD COUNT 3.07 M/uL (4.00-5.50)
[2017-06-29 06:23] LABS: ALBUMIN 2.2 G/DL (3.2-4.8); ALKALINE PHOSPHATASE 94 IU/L (3-129); ALT (GPT) 97 IU/L (3-49); AST (GOT) 32 IU/L (2-34); CHLORIDE 101 MEQ/L (99-109); CREATININE 0.7 MG/DL (0.6-1.3); DIRECT BILIRUBIN 0.2 mg/dL (0.0-0.3); GFR ESTIMATE (CALCULATED) > 59 mL/min/ (58.99-99999); GLUCOSE 107 mg/dL (70-99); POTASSIUM 3.8 MEQ/L (3.7-5.4); SODIUM 131 MEQ/L (136-147); TOTAL BILIRUBIN 0.6 MG/DL (0.0-1.0); UREA NITROGEN (BUN) 9 mg/dL (9-23)
[2017-06-29 06:27] LABS: TOTAL PROTEIN 5.1 G/DL (6.4-8.3)
[2017-06-29 07:30] VITALS: BP 120/70
[2017-06-29 11:30] VITALS: BP 107/60
[2017-06-29 16:16] VITALS: BP 122/75
[2017-06-29 20:23] VITALS: BP 132/77
[2017-06-29 23:56] VITALS: BP 138/82
[2017-06-30 04:00] VITALS: BP 134/93
[2017-06-30 08:47] VITALS: BP 137/83
[2017-06-30 11:31] VITALS: BP 123/72
[2017-06-30 15:42] VITALS: BP 143/90
[2017-06-30 20:22] VITALS: BP 135/85
[2017-06-30 23:55] VITALS: BP 130/81
[2017-07-01 04:27] VITALS: BP 134/78
[2017-07-01 05:14] LABS: BASOPHIL (%) 0.2 % (0-1); EOSINOPHIL (%) 0.2 % (0-5); HEMATOCRIT 26.9 % (38.0-50.0); HEMOGLOBIN 8.3 G/DL (12.5-16.6); IMMATURE GRANULOCYTE (%) 0.5 % (0.0-0.7); LYMPHOCYTE (%) 5.9 % (15-42); LYMPHOCYTE COUNT 0.7 K/uL (1.0-2.8); MCH 29.2 PG (29.0-34.0); MCHC 30.9 G/DL (30.0-36.0); MCV 94.7 FL (86-99); MONOCYTE (%) 11.1 % (3-12); MONOCYTE COUNT 1.4 K/uL (0-0.8); NEUTROPHIL (%) 82.1 % (45-76); NEUTROPHIL COUNT 10.2 K/uL (1.8-6.4); PLATELET COUNT 291 K/uL (156-360); RBC DIS.WIDTH-CV 16.5 % (11.8-14.6); RBC DIS.WIDTH-SD 57.1 % (39-53); RED BLOOD COUNT 2.84 M/uL (4.00-5.50); WHITE BLOOD COUNT 12.4 K/uL (4.1-10.2)
[2017-07-01 05:49] LABS: CHLORIDE 103 MEQ/L (99-109); CREATININE 0.8 MG/DL (0.6-1.3); GFR ESTIMATE (CALCULATED) > 59 mL/min/ (58.99-99999); GLUCOSE 110 mg/dL (70-99); POTASSIUM 3.4 MEQ/L (3.7-5.4); SODIUM 135 MEQ/L (136-147); UREA NITROGEN (BUN) 14 mg/dL (9-23)
[2017-07-01 07:58] VITALS: BP 128/76
[2017-07-01 11:04] VITALS: BP 140/90
[2017-07-01 15:57] VITALS: BP 140/71
[2017-07-01 19:09] VITALS: BP 149/83
[2017-07-01 23:00] VITALS: BP 154/81
[2017-07-02 03:55] VITALS: BP 148/76
[2017-07-02 05:22] LABS: BASOPHIL (%) 0.4 % (0-1); EOSINOPHIL (%) 0.9 % (0-5); EOSINOPHIL COUNT 0.1 K/uL (0-0.3); HEMATOCRIT 24.5 % (38.0-50.0); HEMOGLOBIN 7.7 G/DL (12.5-16.6); IMMATURE GRANULOCYTE (%) 0.7 % (0.0-0.7); LYMPHOCYTE (%) 6.5 % (15-42); LYMPHOCYTE COUNT 0.7 K/uL (1.0-2.8); MCH 29.6 PG (29.0-34.0); MCHC 31.4 G/DL (30.0-36.0); MCV 94.2 FL (86-99); MONOCYTE (%) 12.4 % (3-12); MONOCYTE COUNT 1.4 K/uL (0-0.8); NEUTROPHIL (%) 79.1 % (45-76); NEUTROPHIL COUNT 8.8 K/uL (1.8-6.4); PLATELET COUNT 230 K/uL (156-360); RBC DIS.WIDTH-CV 16.4 % (11.8-14.6); RBC DIS.WIDTH-SD 56.1 % (39-53); WHITE BLOOD COUNT 11.2 K/uL (4.1-10.2)
[2017-07-02 05:43] LABS: CHLORIDE 105 MEQ/L (99-109); CREATININE 0.7 MG/DL (0.6-1.3); GFR ESTIMATE (CALCULATED) > 59 mL/min/ (58.99-99999); GLUCOSE 107 mg/dL (70-99); POTASSIUM 3.1 MEQ/L (3.7-5.4); SODIUM 134 MEQ/L (136-147); UREA NITROGEN (BUN) 12 mg/dL (9-23)
[2017-07-02 07:40] VITALS: BP 152/83
[2017-07-02 12:00] VITALS: BP 128/75
[2017-07-02 23:37] VITALS: BP 132/77
[2017-07-03] VITALS (8 sets, daily range): BP systolic 122–150; BP diastolic 73–81
[2017-07-03 06:22] LABS: BASOPHIL (%) 0.3 % (0-1); EOSINOPHIL (%) 1.2 % (0-5); EOSINOPHIL COUNT 0.1 K/uL (0-0.3); HEMATOCRIT 23.9 % (38.0-50.0); HEMOGLOBIN 7.4 G/DL (12.5-16.6); IMMATURE GRANULOCYTE (%) 0.7 % (0.0-0.7); LYMPHOCYTE (%) 7.1 % (15-42); LYMPHOCYTE COUNT 0.7 K/uL (1.0-2.8); MCH 28.5 PG (29.0-34.0); MCV 91.9 FL (86-99); MONOCYTE (%) 12.4 % (3-12); MONOCYTE COUNT 1.1 K/uL (0-0.8); NEUTROPHIL (%) 78.3 % (45-76); NEUTROPHIL COUNT 7.2 K/uL (1.8-6.4); PLATELET COUNT 221 K/uL (156-360); RBC DIS.WIDTH-CV 16.1 % (11.8-14.6); RBC DIS.WIDTH-SD 53.8 % (39-53); WHITE BLOOD COUNT 9.2 K/uL (4.1-10.2)
[2017-07-03 06:43] LABS: CHLORIDE 105 MEQ/L (99-109); CREATININE 0.7 MG/DL (0.6-1.3); GFR ESTIMATE (CALCULATED) > 59 mL/min/ (58.99-99999); GLUCOSE 90 mg/dL (70-99); POTASSIUM 3.6 MEQ/L (3.7-5.4); SODIUM 134 MEQ/L (136-147); UREA NITROGEN (BUN) 11 mg/dL (9-23)
[2017-07-04 06:56] LABS: HEMATOCRIT 29.1 % (38.0-50.0); HEMOGLOBIN 9.2 G/DL (12.5-16.6); MCH 28.8 PG (29.0-34.0); MCHC 31.6 G/DL (30.0-36.0); MCV 90.9 FL (86-99); PLATELET COUNT 250 K/uL (156-360); RBC DIS.WIDTH-CV 15.6 % (11.8-14.6); RBC DIS.WIDTH-SD 51.4 % (39-53); WHITE BLOOD COUNT 9.8 K/uL (4.1-10.2)
[2017-07-04 07:23] LABS: CHLORIDE 101 MEQ/L (99-109); CREATININE 0.8 MG/DL (0.6-1.3); GFR ESTIMATE (CALCULATED) > 59 mL/min/ (58.99-99999); GLUCOSE 78 mg/dL (70-99); POTASSIUM 3.4 MEQ/L (3.7-5.4); SODIUM 133 MEQ/L (136-147); UREA NITROGEN (BUN) 15 mg/dL (9-23)
[2017-07-04 07:48] VITALS: BP 116/62
[2017-07-04 16:43] VITALS: BP 133/86
[2017-07-04 23:53] VITALS: BP 128/83
[2017-07-05 06:49] LABS: HEMATOCRIT 27.9 % (38.0-50.0); HEMOGLOBIN 9.1 G/DL (12.5-16.6); MCH 30.2 PG (29.0-34.0); MCHC 32.6 G/DL (30.0-36.0); MCV 92.7 FL (86-99); PLATELET COUNT 240 K/uL (156-360); RBC DIS.WIDTH-CV 15.7 % (11.8-14.6); RBC DIS.WIDTH-SD 52.9 % (39-53); RED BLOOD COUNT 3.01 M/uL (4.00-5.50); WHITE BLOOD COUNT 11.1 K/uL (4.1-10.2)
[2017-07-05 07:20] LABS: ALBUMIN 2.3 G/DL (3.2-4.8); ALKALINE PHOSPHATASE 79 IU/L (3-129); ALT (GPT) 81 IU/L (3-49); AST (GOT) 26 IU/L (2-34); CHLORIDE 104 MEQ/L (99-109); CREATININE 0.8 MG/DL (0.6-1.3); DIRECT BILIRUBIN 0.2 mg/dL (0.0-0.3); GFR ESTIMATE (CALCULATED) > 59 mL/min/ (58.99-99999); POTASSIUM 3.9 MEQ/L (3.7-5.4); SODIUM 134 MEQ/L (136-147); TOTAL BILIRUBIN 0.6 MG/DL (0.0-1.0); TOTAL PROTEIN 5.1 G/DL (6.4-8.3); UREA NITROGEN (BUN) 18 mg/dL (9-23)
[2017-07-05 07:22] LABS: GLUCOSE 101 mg/dL (70-99)
[2017-07-05 07:24] VITALS: BP 129/68
[2017-07-05 16:04] VITALS: BP 137/75
[2017-07-06 00:07] VITALS: BP 132/74
[2017-07-06 06:51] LABS: HEMATOCRIT 30.7 % (38.0-50.0); HEMOGLOBIN 9.8 G/DL (12.5-16.6); MCH 29.9 PG (29.0-34.0); MCHC 31.9 G/DL (30.0-36.0); MCV 93.6 FL (86-99); PLATELET COUNT 259 K/uL (156-360); RBC DIS.WIDTH-CV 15.9 % (11.8-14.6); RBC DIS.WIDTH-SD 54.2 % (39-53); RED BLOOD COUNT 3.28 M/uL (4.00-5.50); WHITE BLOOD COUNT 10.4 K/uL (4.1-10.2)
[2017-07-06 07:17] LABS: ALBUMIN 2.5 G/DL (3.2-4.8); ALKALINE PHOSPHATASE 82 IU/L (3-129); ALT (GPT) 91 IU/L (3-49); CHLORIDE 103 MEQ/L (99-109); GFR ESTIMATE (CALCULATED) > 59 mL/min/ (58.99-99999); GLUCOSE 114 mg/dL (70-99); POTASSIUM 3.9 MEQ/L (3.7-5.4); SODIUM 134 MEQ/L (136-147); TOTAL BILIRUBIN 0.5 MG/DL (0.0-1.0); TOTAL PROTEIN 5.4 G/DL (6.4-8.3); UREA NITROGEN (BUN) 20 mg/dL (9-23)
[2017-07-06 07:27] LABS: AST (GOT) 41 IU/L (2-34)
[2017-07-06 16:12] VITALS: BP 118/76
[2017-07-06 23:39] VITALS: BP 147/78
[2017-07-07 05:50] LABS: HEMATOCRIT 29.5 % (38.0-50.0); HEMOGLOBIN 9.3 G/DL (12.5-16.6); MCH 29.2 PG (29.0-34.0); MCHC 31.5 G/DL (30.0-36.0); MCV 92.5 FL (86-99); PLATELET COUNT 220 K/uL (156-360); RBC DIS.WIDTH-CV 15.9 % (11.8-14.6); RBC DIS.WIDTH-SD 53.9 % (39-53); RED BLOOD COUNT 3.19 M/uL (4.00-5.50); WHITE BLOOD COUNT 8.4 K/uL (4.1-10.2)
[2017-07-07 06:21] LABS: ALBUMIN 2.3 G/DL (3.2-4.8); CHLORIDE 104 MEQ/L (99-109); POTASSIUM 3.7 MEQ/L (3.7-5.4); SODIUM 136 MEQ/L (136-147); TOTAL BILIRUBIN 0.5 MG/DL (0.0-1.0)
[2017-07-07 06:27] LABS: ALKALINE PHOSPHATASE 82 IU/L (3-129); ALT (GPT) 89 IU/L (3-49); AST (GOT) 43 IU/L (2-34); CREATININE 0.9 MG/DL (0.6-1.3); GFR ESTIMATE (CALCULATED) > 59 mL/min/ (58.99-99999); GLUCOSE 107 mg/dL (70-99); TOTAL PROTEIN 5.2 G/DL (6.4-8.3); UREA NITROGEN (BUN) 19 mg/dL (9-23)
[2017-07-07 07:20] VITALS: BP 133/84
[2017-07-07] MEDS ORDERED: FUROSEMIDE40 MG PO (10:29)
[2017-07-07] MEDS ORDERED: ALDACTONE100 MG PO (10:29)
[2017-07-07] MEDS ORDERED: NICOTINE PATCH1 EAC2 TD (10:29)
[2017-07-07] MEDS ORDERED: PEPTO BISMOL240 ML PO (10:29)
[2017-07-07] MEDS ORDERED: COMPAZINE5 MG PO (11:06)
== END 2017-07-07 12:16 | disposition home health service (06) | DRG 375 ==
LOC: EME 20:30 → 4EAST 21:37 → 5EAST 21:37 → EDOF 21:37 → ENRESERV 06-28 00:05 → 4EAST 06-28 02:02 → ENRESERV 07-01 07:41 → 5EAST 07-02 20:52 → ENPENDDIS 07-07 → 5EAST 07-07 12:16
PROVIDERS: Emergency Medicine; Hospitalist; Internal Medicine; Student in an Organized Health Care Education/Training Program
PROC: 30233N1 Transfusion of Nonautologous Red Blood Cells into Peripheral Vein, Percutaneous Approach (ICD-10-PCS; principal; 2017-06-28)
PROC: 0W9G30Z Drainage of Peritoneal Cavity with Drainage Device, Percutaneous Approach (ICD-10-PCS; 2017-06-29)
PROC: 3E03305 Introduction of Other Antineoplastic into Peripheral Vein, Percutaneous Approach (ICD-10-PCS; 2017-07-04)
DX: C78.4 Secondary malignant neoplasm of small intestine (principal); D63.0 Anemia in neoplastic disease; K92.2 Gastrointestinal hemorrhage, unspecified; E87.1 Hypo-osmolality and hyponatremia; R18.0 Malignant ascites; C79.89 Secondary malignant neoplasm of other specified sites; C78.6 Secondary malignant neoplasm of retroperitoneum and peritoneum; C25.9 Malignant neoplasm of pancreas, unspecified; C22.0 Liver cell carcinoma; K31.1 Adult hypertrophic pyloric stenosis; K31.5 Obstruction of duodenum; K74.60 Unspecified cirrhosis of liver; E87.6 Hypokalemia; R55 Syncope and collapse; I10 Essential (primary) hypertension; B18.2 Chronic viral hepatitis C; G89.3 Neoplasm related pain (acute) (chronic); K59.00 Constipation, unspecified; F17.210 Nicotine dependence, cigarettes, uncomplicated
CPT/HCPCS: 49083; 71045; 74177; 76937; 80048; 80053; 80076; 81003; 82040; 82105 90; 82140; 82248; 82728; 82746; 83735; 84466; 84484; 85025; 85027; 85610; 85730; 86301 90; 86850; 86900; 86901; 86920; 93005; 93970; 99281; 99285; A6214; C9113; J0640; J1100; J1170; J1626; J1940; J2405; J3480; J7050; J9190; J9263; P9016; P9047; Q0164

== ENCOUNTER 2017-08-18 23:45 | Observation (INO) | payer OTHER ==
[~2017-08-18] VITALS: Ht 172.7 cm; Wt 71.0 kg
[~2017-08-18 23:45] MED LIST changes: +ALDACTONE100 MG PO; +AMLODIPINE BESYL5 MG PO; +FUROSEMIDE40 MG PO; +NICOTINE PATCH1 EAC2 TD; +PEPTO BISMOL240 ML PO; +PHILLIPS'400 MG/5 M PO; +ZANTAC150 MG PO
[2017-08-19 00:44] LABS: BASOPHIL (%) 0.3 % (0-1); EOSINOPHIL (%) 0.3 % (0-5); HEMATOCRIT 34.1 % (38.0-50.0); HEMOGLOBIN 11.2 G/DL (12.5-16.6); IMMATURE GRANULOCYTE (%) 0.5 % (0.0-0.7); LYMPHOCYTE (%) 4.8 % (15-42); LYMPHOCYTE COUNT 0.6 K/uL (1.0-2.8); MCH 28.7 PG (29.0-34.0); MCHC 32.8 G/DL (30.0-36.0); MCV 87.4 FL (86-99); MONOCYTE COUNT 0.5 K/uL (0-0.8); NEUTROPHIL (%) 90.1 % (45-76); NEUTROPHIL COUNT 11.7 K/uL (1.8-6.4); PLATELET COUNT 239 K/uL (156-360); RBC DIS.WIDTH-CV 18.7 % (11.8-14.6); RBC DIS.WIDTH-SD 58.9 % (39-53)
[2017-08-19 00:50] LABS: ALBUMIN 2.5 g/dL (3.2-4.8); CHLORIDE 103 mEq/L (99-109); POTASSIUM 4.1 mEq/L (3.7-5.4); SODIUM 133 mEq/L (136-147)
[2017-08-19 00:52] LABS: GLUCOSE 116 mg/dL (70-99); TOTAL PROTEIN 5.9 g/dL (6.4-8.3)
[2017-08-19 00:54] LABS: TOTAL BILIRUBIN 0.6 mg/dL (0.0-1.0)
[2017-08-19 00:56] LABS: ALKALINE PHOSPHATASE 84 IU/L (3-129); CREATININE 0.7 mg/dL (0.6-1.3); GFR ESTIMATE (CALCULATED) > 59 mL/min/ (58.99-99999)
[2017-08-19 00:57] LABS: UREA NITROGEN (BUN) 12 mg/dL (9-23)
[2017-08-19 00:58] LABS: AST (GOT) 39 IU/L (2-34)
[2017-08-19 00:59] LABS: ALT (GPT) 120 IU/L (3-49); LIPASE 6 U/L (1.0-51.0)
[2017-08-19] MEDS ORDERED: COMPAZINE10 MG PO (02:58)
[2017-08-19 03:34] LABS: APPEARANCE SL.HAZY ((CLEAR)); BILIRUBIN NEGATIVE; BLOOD NEGATIVE; COLOR YELLOW ((YELLOW)); GLUCOSE (STRIP) NEGATIVE; KETONES NEGATIVE; LEUKOCYTES NEGATIVE; NITRITE POSITIVE; PROTEIN (STRIP) 30; UROBILINOGEN 0.2 MG/DL (0.2-1.0)
[2017-08-19 03:38] LABS: BACTERIA 3+ /HPF; EPITHELIAL CELLS RARE /HPF; MUCUS 2+ /LPF; RED BLOOD CELLS 0-5 /HPF (0-5); UCUL ADDED? YES; WHITE BLOOD CELLS 0-5 /HPF (0-5)
[2017-08-19 04:11] VITALS: BP 131/75
[2017-08-19 07:26] VITALS: BP 150/94
[2017-08-19] MEDS ORDERED: MARINOL5 MG PO (12:48)
[2017-08-19 13:05] VITALS: BP 137/88
[2017-08-19 16:34] VITALS: BP 128/84
[2017-08-19 19:45] VITALS: BP 151/93
[2017-08-19 23:21] VITALS: BP 138/93
[2017-08-20 07:56] VITALS: BP 144/83
[2017-08-20 11:40] VITALS: BP 157/74
[2017-08-20 15:26] VITALS: BP 147/84
== END 2017-08-20 17:20 | disposition hospice, home (50) ==
LOC: EME → EDBD 23:45 → EME 23:45 → EDOF 08-19 02:28 → 5WEST 08-19 02:28 → EDOF 08-19 02:28 → ENRESERV 08-19 02:34 → 5WEST 08-19 03:57
PROVIDERS: Emergency Medicine
PROC: 0W9G3ZZ Drainage of Peritoneal Cavity, Percutaneous Approach (ICD-10-PCS; principal; 2017-08-20)
DX: C25.9 Malignant neoplasm of pancreas, unspecified (principal); C22.0 Liver cell carcinoma; R18.0 Malignant ascites; G89.3 Neoplasm related pain (acute) (chronic); B19.20 Unspecified viral hepatitis C without hepatic coma; K74.60 Unspecified cirrhosis of liver; K31.5 Obstruction of duodenum; C79.89 Secondary malignant neoplasm of other specified sites; Z92.21 Personal history of antineoplastic chemotherapy; I81 Portal vein thrombosis; J90 Pleural effusion, not elsewhere classified; Z45.2 Encounter for adjustment and management of vascular access device
CPT/HCPCS: 49083; 71045; 74177; 80053; 81003; 82140; 83605; 83690; 85025; 87077; 87086; 87186; 93005; 99281; 99285; G0378; J0696; J1644; J2405; J7040; P9047; Q0164

== ENCOUNTER → 2017-08-29 | Outpatient (CLI) | payer OTHER ==
[~2017-08-29] MED LIST changes: +ATIVAN2 MG PO; +COMPAZINE10 MG PO; +CONSTULOSE10 GM/15 M PO; +DULCOLAX10 MG PR; +LEVSIN-SL0.125 MG SL; +MARINOL5 MG PO; +MORPHINE CON20 MG/M1 PO; +MS CONTIN,ORAMO30 MG PO; +NICODERM CQ1 EAC2 TD; +SENNA-S TABLET1 EACH PO; +TYLENOL325 M2 PO
== END | disposition home or self-care (01) ==
LOC: RAD 08-28 08:15
PROC: 0W9G3ZZ Drainage of Peritoneal Cavity, Percutaneous Approach (ICD-10-PCS; principal; 2017-08-29)
DX: R18.8 Other ascites (principal); K74.60 Unspecified cirrhosis of liver
CPT/HCPCS: 49083

== ENCOUNTER → 2017-09-17 | Outpatient (CLI) | payer OTHER ==
[~2017-09-17] MED LIST changes: +MORPHINE SULFAT15 M1 PO
[2017-09-17 09:21] LABS: PTT 20.9 SEC (25-37)
== END | disposition home or self-care (01) ==
LOC: OPR 09-03 09:00 → EDSTATUS 09-03 09:00 → OPR 08:31
PROVIDERS: Internal Medicine
PROC: 0W9G30Z Drainage of Peritoneal Cavity with Drainage Device, Percutaneous Approach (ICD-10-PCS; principal; 2017-09-17)
DX: R18.8 Other ascites (principal); C25.9 Malignant neoplasm of pancreas, unspecified; K74.60 Unspecified cirrhosis of liver; B19.20 Unspecified viral hepatitis C without hepatic coma; F17.210 Nicotine dependence, cigarettes, uncomplicated
CPT/HCPCS: 49406; 85610; 85730; C1729

== ENCOUNTER 2017-09-26 07:29 | Emergency (ER) | payer OTHER ==
[~2017-09-26] VITALS: Ht 170.2 cm; Wt 52.2 kg
[2017-09-26 08:12] LABS: HEMATOCRIT 38.5 % (38.0-50.0); HEMOGLOBIN 12.7 G/DL (12.5-16.6); MCH 29.1 PG (29.0-34.0); MCV 88.3 FL (86-99); PLATELET COUNT 237 K/uL (156-360); RBC DIS.WIDTH-CV 20.4 % (11.8-14.6); RBC DIS.WIDTH-SD 66.1 % (39-53); RED BLOOD COUNT 4.36 M/uL (4.00-5.50); WHITE BLOOD COUNT 11.9 K/uL (4.1-10.2)
[2017-09-26 08:17] LABS: BASOPHIL (%) 0.3 % (0-1); EOSINOPHIL (%) 0.3 % (0-5); IMMATURE GRANULOCYTE (%) 1.3 % (0.0-0.7); LYMPHOCYTE COUNT 0.7 K/uL (1.0-2.8); MONOCYTE (%) 8.9 % (3-12); MONOCYTE COUNT 1.1 K/uL (0-0.8); NEUTROPHIL (%) 83.2 % (45-76); NEUTROPHIL COUNT 9.9 K/uL (1.8-6.4)
[2017-09-26 08:21] LABS: AMYLASE 25 IU/L (1-118); CHLORIDE 103 mEq/L (99-109); SODIUM 134 mEq/L (136-147)
[2017-09-26 08:23] LABS: GLUCOSE 105 mg/dL (70-99)
[2017-09-26 08:26] LABS: SERUM ETHYL ALCOHOL < 10 mg/dL
[2017-09-26 08:27] LABS: CREATININE 0.8 mg/dL (0.6-1.3); GFR ESTIMATE (CALCULATED) > 59 mL/min/ (58.99-99999)
[2017-09-26 08:28] LABS: UREA NITROGEN (BUN) 15 mg/dL (9-23)
[2017-09-26 08:30] LABS: LIPASE 4 U/L (1.0-51.0)
[2017-09-26 08:30] LABS: TROP-I INTERPRETATION NEGATIVE; TROPONIN-I < 0.01 ng/mL (0.0-0.30)
[2017-09-26 13:30] VITALS: BP 108/71
== END 2017-09-26 13:31 | disposition home or self-care (01) ==
LOC: EME 07:29
PROVIDERS: Emergency Medicine
DX: E83.51 Hypocalcemia (principal); R53.1 Weakness; I73.9 Peripheral vascular disease, unspecified; I10 Essential (primary) hypertension; K21.9 Gastro-esophageal reflux disease without esophagitis; Z86.73 Personal history of transient ischemic attack (TIA), and cerebral infarction without residual deficits; F17.200 Nicotine dependence, unspecified, uncomplicated; B19.20 Unspecified viral hepatitis C without hepatic coma; Z85.07 Personal history of malignant neoplasm of pancreas; Z92.21 Personal history of antineoplastic chemotherapy; Z95.0 Presence of cardiac pacemaker
CPT/HCPCS: 70450; 80048; 81003; 82150; 82948; 83690; 84484; 85025; 85610; 85730; 86850; 86900; 86901; 99281; 99285; G0480

== ENCOUNTER 2017-10-07 02:45 | Emergency (ER) | payer OTHER ==
[~2017-10-07] VITALS: Ht 167.6 cm; Wt 44.7 kg
[2017-10-07 06:08] LABS: HEMATOCRIT 44.9 % (38.0-50.0); MCH 29.7 PG (29.0-34.0); MCHC 34.3 G/DL (30.0-36.0); MCV 86.5 FL (86-99); PLATELET COUNT 293 K/uL (156-360); RBC DIS.WIDTH-CV 20.3 % (11.8-14.6); RBC DIS.WIDTH-SD 62.8 % (39-53); RED BLOOD COUNT 5.19 M/uL (4.00-5.50); WHITE BLOOD COUNT 12.2 K/uL (4.1-10.2)
[2017-10-07 06:09] LABS: HEMOGLOBIN 15.4 G/DL (12.5-16.6)
[2017-10-07 06:19] LABS: CHLORIDE 93 mEq/L (99-109); POTASSIUM 5.4 mEq/L (3.7-5.4); SODIUM 128 mEq/L (136-147)
[2017-10-07 06:21] LABS: GLUCOSE 141 mg/dL (70-99)
[2017-10-07 06:25] LABS: CREATININE 1.4 mg/dL (0.6-1.3); GFR ESTIMATE (CALCULATED) 54 mL/min/ (58.99-99999); UREA NITROGEN (BUN) 38 mg/dL (9-23)
[2017-10-07 06:28] LABS: TROP-I INTERPRETATION NEGATIVE; TROPONIN-I 0.02 ng/mL (0.0-0.30)
[2017-10-07 07:08] VITALS: BP 93/66
== END 2017-10-07 10:40 ==
LOC: EME → EDBD 02:45 → EME 03:17
PROVIDERS: Emergency Medicine
DX: R11.2 Nausea with vomiting, unspecified (principal); R10.84 Generalized abdominal pain; R07.9 Chest pain, unspecified; C25.9 Malignant neoplasm of pancreas, unspecified; Z51.5 Encounter for palliative care; I10 Essential (primary) hypertension; K21.9 Gastro-esophageal reflux disease without esophagitis; B19.20 Unspecified viral hepatitis C without hepatic coma; F17.200 Nicotine dependence, unspecified, uncomplicated; Z86.73 Personal history of transient ischemic attack (TIA), and cerebral infarction without residual deficits; Z92.21 Personal history of antineoplastic chemotherapy
CPT/HCPCS: 80048; 84484; 85027; 93005; 99281; 99285; J1630; J2405; J3010; Q0164